=== PATIENT | male | born 1970 | race Caucasian/White ===

== ENCOUNTER 2019-03-29 19:26 | Emergency (ER) | payer MEDICARE ==
[~2019-03-29] VITALS: Ht 182.9 cm; Wt 127.0 kg
[~2019-03-29 19:26] MED LIST: AMIT10 PO; AMPDEX10CR; ANTIDEPRESSANT; ASPI81EC PO; AZIT250 PO; BACL20 PO; BLOOD PRESSURE; CITA20 PO; COPAXONE40 MG/1 ML SQ; CYCL10 PO; DIAZ5 PO; DIPH50 PO; FAMO40 PO; HYDACE5 PO; HYDACE7.5 PO; IBUP200; IBUP800 PO; Keflex500 MG PO; LORA1 PO; NAPR550 PO; OXYACE5T PO; PSEU120ER; Percocet 5-3251 EACH PO; TRAM50 PO; [UNRECOGNIZED DRUG - REMARK]
[2019-03-29] MEDS ORDERED: Zithromax250 MG PO (20:40)
== END 2019-03-29 21:00 | disposition home or self-care (01) ==
LOC: ER 19:26
DX: J44.1 Chronic obstructive pulmonary disease with (acute) exacerbation (principal); H66.92 Otitis media, unspecified, left ear; F32.9 Major depressive disorder, single episode, unspecified; Z79.899 Other long term (current) drug therapy; Z88.1 Allergy status to other antibiotic agents
CPT/HCPCS: 71046; 99283-25

== ENCOUNTER 2022-04-23 20:57 | Emergency (ER) | payer MEDICARE ==
[~2022-04-23] VITALS: Ht 185.4 cm; Wt 103.4 kg
[~2022-04-23 20:57] MED LIST changes: +ASPI81CH PO; +ATOR40TA PO; +CLOP75 PO; +Zithromax250 MG PO
[2022-04-23 21:38] LABS: BASOPHILS ABSOLUTE AUTO 0.05 K/mm3 (0.00-0.23); BASOPHILS PERCENT AUTO 0 % (0-2); EOSINOPHILS ABSOLUTE AUTO 0.15 K/mm3 (0.00-0.68); EOSINOPHILS PERCENT AUTO 1 % (0-6); Hematocrit 45.7 % (37.0-53.0); Hemoglobin 16.2 g/dL (13.5-17.5); IMMATURE GRAN ABSOLUTE AUTO 0.05 K/mm3 (0.00-0.10); IMMATURE GRAN PERCENT AUTO 0 % (0-1); LYMPHOCYTES ABSOLUTE AUTO 2.45 K/mm3 (0.84-5.20); LYMPHOCYTES PERCENT AUTO 20 % (21-46); MONOCYTES ABSOLUTE AUTO 0.79 K/mm3 (0.16-1.47); MONOCYTES PERCENT AUTO 6 % (4-13); Mean Corpuscular HGB 30.6 pg (26.0-34.0); Mean Corpuscular HGB Conc 35.4 g/dL (31.5-36.5); Mean Corpuscular Volume 86 fL (80-100); Mean Platelet Volume 11.5 fL (9.1-12.4); NEUTROPHILS ABSOLUTE AUTO 9.01 K/mm3 (1.96-9.15); NEUTROPHILS PERCENT AUTO 72 % (41-73); Platelet Count 285 K/mm3 (150-400); RDW Coefficient Variation 12.4 % (11.7-14.2); RDW Standard Deviation 38.9 fL (35.1-46.3); Red Blood Cell Count 5.29 M/mm3 (4.30-5.90)
[2022-04-23 21:57] LABS: Albumin, Blood 3.6 g/dL (3.4-5.0); Bilirubin, Total 0.9 mg/dL (0.1-1.0); Bun/Creatinine Ratio 13.5 (12.0-20.0); Calcium, Blood 9.3 mg/dL (8.5-10.1); Creatinine, Blood 0.96 mg/dL (0.60-1.20); Globulin, Blood 3.6 g/dL (2.2-4.0); Potassium, Blood 3.6 mmol/L (3.5-5.5); Total Protein, Blood 7.2 g/dL (6.4-8.2)
== END 2022-04-24 03:20 | disposition home or self-care (01) ==
LOC: ER 20:57
PROVIDERS: Student in an Organized Health Care Education/Training Program
DX: R53.83 Other fatigue (principal); R42 Dizziness and giddiness; G35 Multiple sclerosis; F17.210 Nicotine dependence, cigarettes, uncomplicated; Z88.0 Allergy status to penicillin; Z91.09 Other allergy status, other than to drugs and biological substances; Z79.82 Long term (current) use of aspirin; Z79.899 Other long term (current) drug therapy; Z86.73 Personal history of transient ischemic attack (TIA), and cerebral infarction without residual deficits
CPT/HCPCS: 80053; 85025; 96374; 96375; 99283-25; J1200; J2930

== ENCOUNTER 2022-05-16 12:36 | Emergency (ER) | payer MEDICARE ==
[~2022-05-16] VITALS: Ht 185.4 cm; Wt 103.4 kg
== END 2022-05-16 15:26 | disposition home or self-care (01) ==
LOC: ER 12:36
DX: M79.672 Pain in left foot (principal); W45.0XXA Nail entering through skin, initial encounter; Z23 Encounter for immunization; F17.210 Nicotine dependence, cigarettes, uncomplicated; Z88.0 Allergy status to penicillin; Z91.048 Other nonmedicinal substance allergy status; Z79.899 Other long term (current) drug therapy; Z79.82 Long term (current) use of aspirin
CPT/HCPCS: 73630; 90714

== ENCOUNTER 2023-02-26 16:29 | Observation (INO) | payer MEDICARE, OTHER ==
[~2023-02-26] VITALS: Ht 185.4 cm; Wt 106.9 kg
[~2023-02-26 16:29] MED LIST changes: +IBUP600 PO; +ONDA4ODT MM; +OXAYDO5 M1 PO; +SULTRIDS PO; +TAMS.4ER PO
[2023-02-26 20:37] VITALS: BP 129/85
--- NOTE | 2023-02-26 21:05 | NUR ---
02/26/23 2105 Genevieve Farah SET UP IN OR #2
[2023-02-27] VITALS (17 sets, daily range): BP systolic 113–133; BP diastolic 70–94
--- NOTE | 2023-02-27 02:15 | NUR ---
ASSUMED CARE ASSUMED CARE OF THIS PATIENT FROM [facility]. ARRIVED FROM OR WITH ANESTHESIOLOGIST AT BEDSIDE. PATIENT ON ROOM AIR, SPO2 GREATER THAN 90%. PATIENT LYING IN BED WITH EYES CLOSED, EASILY AROUSABLE TO VERBAL STIMULI. CONFUSED AND ATTEMPTING TO GRAB STAFF AND MOVE OFF OF GURNEY. EASILY REDIRECTABLE. ARRIVED TO BEDSIDE FOR ADMISSION INFORMATION. BEDSIDE REPORT COMPLETED.
[2023-02-27 03:50] LABS: BASOPHILS ABSOLUTE AUTO 0.02 K/mm3 (0.00-0.23); BASOPHILS PERCENT AUTO 0 % (0-2); EOSINOPHILS ABSOLUTE AUTO 0.01 K/mm3 (0.00-0.68); EOSINOPHILS PERCENT AUTO 0 % (0-6); Hematocrit 43.7 % (37.0-53.0); Hemoglobin 14.9 g/dL (13.5-17.5); IMMATURE GRAN ABSOLUTE AUTO 0.03 K/mm3 (0.00-0.10); IMMATURE GRAN PERCENT AUTO 0 % (0-1); LYMPHOCYTES ABSOLUTE AUTO 0.53 K/mm3 (0.84-5.20); LYMPHOCYTES PERCENT AUTO 6 % (21-46); MONOCYTES ABSOLUTE AUTO 0.04 K/mm3 (0.16-1.47); MONOCYTES PERCENT AUTO 1 % (4-13); Mean Corpuscular HGB 30.3 pg (26.0-34.0); Mean Corpuscular HGB Conc 34.1 g/dL (31.5-36.5); Mean Corpuscular Volume 89 fL (80-100); NEUTROPHILS ABSOLUTE AUTO 7.98 K/mm3 (1.96-9.15); NEUTROPHILS PERCENT AUTO 93 % (41-73); Platelet Count 231 K/mm3 (150-400); RDW Coefficient Variation 12.6 % (11.7-14.2); RDW Standard Deviation 41.1 fL (35.1-46.3); Red Blood Cell Count 4.91 M/mm3 (4.30-5.90); White Blood Cell Count 8.61 K/mm3 (4.00-11.30)
[2023-02-27 04:11] LABS: Albumin, Blood 3.6 g/dL (3.4-5.0); Albumin/Globulin Ratio 1.1 (0.8-1.8); Bilirubin, Total 1.5 mg/dL (0.1-1.0); Bun/Creatinine Ratio 14.3 (12.0-20.0); Calcium, Blood 8.8 mg/dL (8.5-10.1); Creatinine, Blood 1.05 mg/dL (0.60-1.20); Globulin, Blood 3.2 g/dL (2.2-4.0); Potassium, Blood 4.7 mmol/L (3.5-5.5); Total Protein, Blood 6.8 g/dL (6.4-8.2)
--- NOTE | 2023-02-27 06:18 | NUR ---
SHIFT SUMMARY PATIENT IS A&O X 4. LABILE MOOD. FREQUENTLY ASKS ABOUT EVENTS LEADING TO HOSPITAL ADMISSION AND PROCEDURE. REMAINS AT BEDSIDE TO ASSIST WITH CALMING PATIENT. MEDICATED WITH 30MG TORADOL IV FOR ESOPHAGEAL PAIN. VSS T/O SHIFT.
--- NOTE | 2023-02-27 12:36 | NUR ---
Discharge. Pt discharged at 1220. Medications faxed to [facility] pharmacy. Pt discharge packet, instructions and education given to patient. Pt verbalized understanding of discharge instructions. All personal belongings sent home with patient. Pt and walked out of unit to leave.
== END 2023-02-27 12:23 | disposition home or self-care (01) ==
LOC: ER 16:29 → ICUE 02-27 01:23
PROVIDERS: ADMIT Internal Medicine
DX: T18.128A Food in esophagus causing other injury, initial encounter (principal); X58.XXXA Exposure to other specified factors, initial encounter; K20.90 Esophagitis, unspecified without bleeding; M54.50 Low back pain, unspecified; G89.29 Other chronic pain; Z88.0 Allergy status to penicillin; Z79.82 Long term (current) use of aspirin; Z79.02 Long term (current) use of antithrombotics/antiplatelets
CPT/HCPCS: 36415; 71046; 80053; 85025; 88305; 88312; 96374; 96375; 99284-25; A9270; C9113; J1100; J1610; J1650; J1885; J2250; J2405; J2704; J3010; J7120

== ENCOUNTER 2023-10-05 15:18 | Emergency (ER) | payer MEDICARE, OTHER ==
[~2023-10-05] VITALS: Ht 185.4 cm; Wt 127.0 kg
[2023-10-05 15:31] VITALS: BP 140/105
[2023-10-05 16:01] LABS: BASOPHILS ABSOLUTE AUTO 0.04 K/mm3 (0.00-0.23); BASOPHILS PERCENT AUTO 0 % (0-2); EOSINOPHILS PERCENT AUTO 1 % (0-6); Hematocrit 41.5 % (37.0-53.0); Hemoglobin 14.1 g/dL (13.5-17.5); IMMATURE GRAN ABSOLUTE AUTO 0.03 K/mm3 (0.00-0.10); IMMATURE GRAN PERCENT AUTO 0 % (0-1); LYMPHOCYTES ABSOLUTE AUTO 1.48 K/mm3 (0.84-5.20); LYMPHOCYTES PERCENT AUTO 16 % (21-46); MONOCYTES ABSOLUTE AUTO 0.54 K/mm3 (0.16-1.47); MONOCYTES PERCENT AUTO 6 % (4-13); Mean Corpuscular HGB 29.7 pg (26.0-34.0); Mean Corpuscular Volume 87 fL (80-100); Mean Platelet Volume 10.8 fL (9.1-12.4); NEUTROPHILS PERCENT AUTO 76 % (41-73); Platelet Count 304 K/mm3 (150-400); RDW Coefficient Variation 12.8 % (11.7-14.2); RDW Standard Deviation 40.8 fL (35.1-46.3); Red Blood Cell Count 4.75 M/mm3 (4.30-5.90); White Blood Cell Count 9.09 K/mm3 (4.00-11.30)
[2023-10-05 16:19] LABS: Albumin, Blood 3.4 g/dL (3.4-5.0); Albumin/Globulin Ratio 0.9 (0.8-1.8); Bilirubin, Total 1.7 mg/dL (0.1-1.0); Bun/Creatinine Ratio 12.1 (12.0-20.0); Calcium, Blood 8.5 mg/dL (8.5-10.1); Creatinine, Blood 0.83 mg/dL (0.60-1.20); Globulin, Blood 3.9 g/dL (2.2-4.0); Potassium, Blood 3.6 mmol/L (3.5-5.5); Total Protein, Blood 7.3 g/dL (6.4-8.2)
[2023-10-05] MEDS ORDERED: BACTRIM DS TAB1 EAC1 PO (16:59)
[2023-10-05] MEDS ORDERED: Cleocin HCl150 MG PO (16:59)
== END 2023-10-05 17:29 | disposition home or self-care (01) ==
LOC: ER 15:18
PROVIDERS: Physician Assistant
DX: L03.116 Cellulitis of left lower limb (principal); F17.210 Nicotine dependence, cigarettes, uncomplicated; Z88.0 Allergy status to penicillin; Z91.048 Other nonmedicinal substance allergy status
CPT/HCPCS: 80053; 85025; 99283; A9270